=== PATIENT | female | born 1975 | race American Indian/Alaskan Native ===

== ENCOUNTER 2017-08-03 19:05 | Emergency (ER) | payer SELFPAY ==
[2017-08-03] MEDS ORDERED: ASPIRIN PO ONE (19:38)
[2017-08-03 19:49] VITALS: BP 133/91
[2017-08-03 20:16] LABS: Basophils # (Auto) 0.1 K/mm3 (0.0-0.1); Basophils % (Auto) 1.1 % (0.0-1.8); Hematocrit 34.9 % (30.3-42.9); Hemoglobin 10.7 gm/dl (10.1-14.3); Lymphocytes # (Auto) 1.1 K/mm3 (1.2-5.4); Lymphocytes % (Auto) 9.3 % (13.4-35.0); Mean Corpuscular HGB Conc 31 % (30-34); Mean Corpuscular Volume 81 fl (79-97); Monocytes # (Auto) 0.5 K/mm3 (0.0-0.8); Monocytes % (Auto) 4.7 % (0.0-7.3); Platelet Count 339 K/mm3 (140-440); Red Blood Count 4.31 M/mm3 (3.65-5.03); Red Cell Distribution Width 19.5 % (13.2-15.2)
[2017-08-03 20:22] LABS: Alanine Aminotransferase 10 units/L (7-56); Albumin 4.1 g/dL (3.9-5); BUN/Creatinine Ratio 10; Blood Urea Nitrogen 6 mg/dL (7-17); Calcium 9.6 mg/dL (8.4-10.2); Hemolysis Index 1
[2017-08-03 20:23] LABS: Mean Corpuscular Hemoglobin 25 pg (28-32)
[2017-08-03] MEDS ORDERED: ZOFRAN IV ONE (21:09)
[2017-08-03] MEDS ORDERED: PEPCID IV ONE (21:09)
[2017-08-03] MEDS ORDERED: NACL 0.9% 1000 ML 1,000 ML IV ONE (21:09)
[2017-08-03] MEDS ORDERED: BENTYL IM ONE (21:09)
[2017-08-03] MEDS ORDERED: VIBRAMYCIN PO ONE (22:26)
--- NOTE | 2017-08-03 22:31 | Emergency Department Report ---
ED N/V/D HPI - General Chief complaint: Abdominal Pain Stated complaint: ABD PAIN Time Seen by Provider: 08/03/17 21:05 Source: patient Mode of arrival: Ambulatory Limitations: No Limitations - History of Present Illness Initial comments: Patient is a 41-year-old -[place] male who is presenting with nausea vomiting for the last 2-3 days. Patient states that she has some mild epigastric discomfort. Patient states she feels as though she has food poisoning. Patient has a burning sensation in the epigastrium. Patient states that the pain does not radiate anywhere. Patient denies any diarrhea fevers chills at this time. Patient also mentioned that she had a tick that was removed from her back several days ago as well. Patient has not had any rash. - Related Data Previous Rx's Medication Instructions Recorded Last Taken Type Dicyclomine [Bentyl] 10 mg PO QID #15 capsule 08/03/17 Unknown Rx Ondansetron [Zofran Odt] 4 mg PO Q8HR PRN #10 tab.rapdis 08/03/17 Unknown Rx Allergies Allergy/AdvReac Type Severity Reaction Status Date / Time No Known Allergies Allergy Unverified 08/03/17 19:32 ED Review of Systems ROS: Stated complaint: ABD PAIN Other details as noted in HPI Comment: All other systems reviewed and negative ED Past Medical Hx - Past Medical History Previous Medical History?: Yes Additional medical history: heart murmur - Surgical History Past Surgical History?: Yes Additional Surgical History: c sect X 3 - Social History Smoking Status: Current Every Day Smoker Substance Use Type: Marijuana - Medications Home Medications: Home Medications Medication Instructions Recorded Confirmed Last Taken Type Dicyclomine [Bentyl] 10 mg PO QID #15 capsule 08/03/17 Unknown Rx Ondansetron [Zofran Odt] 4 mg PO Q8HR PRN #10 tab.rapdis 08/03/17 Unknown Rx ED Physical Exam - General Limitations: No Limitations General appearance: alert, in no apparent distress - Head Head exam: Present: atraumatic, normocephalic - Eye Eye exam: Present: normal appearance - ENT ENT exam: Present: mucous membranes moist - Neck Neck exam: Present: normal inspection - Respiratory Respiratory exam: Present: normal lung sounds bilaterally. Absent: respiratory distress, wheezes, rales, rhonchi - Cardiovascular Cardiovascular Exam: Present: regular rate, normal rhythm. Absent: systolic murmur, diastolic murmur, rubs, gallop - GI/Abdominal GI/Abdominal exam: Present: soft, distended, tenderness, guarding, rebound, normal bowel sounds - Extremities Exam Extremities exam: Present: normal inspection - Back Exam Back exam: Present: normal inspection - Neurological Exam Neurological exam: Present: alert, oriented X3 - Psychiatric Psychiatric exam: Present: normal affect, normal mood - Skin Skin exam: Present: warm, dry, intact, normal color. Absent: rash ED Course Vital Signs 08/03/17 19:24 Temperature 98.1 F Pulse Rate 64 Respiratory 16 Rate Blood Pressure 133/91 O2 Sat by Pulse 100 Oximetry ED Medical Decision Making - Lab Data Result diagrams: 08/03/17 19:40 08/03/17 19:40 - Medical Decision Making Patient received IV fluids Zofran Pepcid and Bentyl patient was feeling much improved. Patient was given 1 dose of doxycycline here to forman off any tickborne illnesses and will be discharged home. Critical care attestation.: If time is entered above; I have spent that time in minutes in the direct care of this critically ill patient, excluding procedure time. ED Disposition Clinical Impression: Gastritis Qualifiers: Gastritis type: unspecified gastritis Chronicity: acute Gastritis bleeding: presence of bleeding unspecified Qualified Code(s): K29.00 - Acute gastritis without bleeding Disposition: - TO HOME OR SELFCARE Is pt being admited?: No Does the pt Need Aspirin: No Condition: Stable Instructions: Gastritis (ED), Tick Bite (ED) Referrals: ALMITA PORTER MD [Primary Care Provider] - 3-5 Days
[2017-08-03 23:41] LABS: Bilirubin,Urine NEG (Negative); Blood,Urine NEG (Negative); Color,Urine Yellow (Yellow); Mucus,Urine 1+ /HPF; Urobilinogen,Urine < 2.0 mg/dL (<2.0)
== END 2017-08-03 22:47 | disposition home or self-care (01) ==
LOC: ED 19:05
DX: K29.70 Gastritis, unspecified, without bleeding (principal); F17.200 Nicotine dependence, unspecified, uncomplicated; F12.10 Cannabis abuse, uncomplicated
CPT/HCPCS: 36415; 80053; 81001; 84484; 84703; 85025; 93005; 93010; 96361; 96372; 96374; 96375; 99284; J0500; J2405; J7030

== ENCOUNTER 2020-10-24 23:58 | Emergency (ER) | payer OTHER ==
[2020-10-25] MEDS ORDERED: IBUPROFEN 600 MG TAB PO ONE ×2 (01:37→04:00)
[2020-10-25] MEDS ORDERED: ACETAMINOPHEN 500 MG TAB PO ONE ×2 (01:37→04:00)
[2020-10-25] MEDS ORDERED: CYCLOBENZAPRINE 10 MG TAB PO ONE ×2 (01:38→04:00)
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
[2020-10-25 03:11] LABS: Basophils # (Auto) 0.1 K/mm3 (0.0-0.1); Basophils % (Auto) 0.6 % (0.0-1.8); Eosinophils % (Auto) 0.5 % (0.0-4.3); Hematocrit 30.2 % (30.3-42.9); Hemoglobin 9.3 gm/dl (10.1-14.3); Lymphocytes # (Auto) 2.5 K/mm3 (1.2-5.4); Lymphocytes % (Auto) 28.8 % (13.4-35.0); Mean Corpuscular HGB Conc 31 % (30-34); Mean Corpuscular Volume 74 fl (79-97); Monocytes # (Auto) 0.5 K/mm3 (0.0-0.8); Monocytes % (Auto) 6.4 % (0.0-7.3); Platelet Count 283 K/mm3 (140-440); Red Blood Count 4.09 M/mm3 (3.65-5.03)
[2020-10-25 03:22] LABS: Red Cell Distribution Width 20.3 % (13.2-15.2)
[2020-10-25 03:32] LABS: Alanine Aminotransferase 10 units/L (7-56); Albumin 4.4 g/dL (3.9-5); Blood Urea Nitrogen 6 mg/dL (7-17); Calcium 9.1 mg/dL (8.4-10.2); Hemolysis Index 0
[2020-10-25 03:38] LABS: BUN/Creatinine Ratio 12
[2020-10-25] MEDS ORDERED: POTASSIUM CHLORIDE ER 20 MEQ TAB PO ONE (04:21)
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
[2020-10-25 09:19] VITALS: BP 136/79
== END 2020-10-25 09:17 | disposition home or self-care (01) ==
LOC: ED 23:58
DX: M54.2 Cervicalgia (principal); R51.9 Headache, unspecified; M54.5 Low back pain; R10.9 Unspecified abdominal pain; F17.200 Nicotine dependence, unspecified, uncomplicated; F12.90 Cannabis use, unspecified, uncomplicated; Z79.899 Other long term (current) drug therapy; V87.7XXA Person injured in collision between other specified motor vehicles (traffic), initial encounter; Y93.89 Activity, other specified; Y92.488 Other paved roadways as the place of occurrence of the external cause; Y99.8 Other external cause status
CPT/HCPCS: 36415; 70450; 72070; 72100; 72125; 74177; 80053; 83690; 84703; 85025; 99284; Q9967